=== PATIENT | male | born 1965 | race Caucasian/White ===

== ENCOUNTER → 2024-09-22 11:14 | Outpatient (REF) | payer OTHER, SELFPAY | LOC: HWRAD 11:14 | PROVIDERS: ATTENDING PHYSICIAN Nurse Practitioner | DX: M25.561 Pain in right knee (principal) | CPT/HCPCS: 73564 ==

== ENCOUNTER → 2024-11-09 07:03 | Outpatient (REF) | payer OTHER, SELFPAY | LOC: MRI 07:03 | PROVIDERS: ATTENDING PHYSICIAN Orthopaedic Surgery; FAMILY PHYSICIAN Nurse Practitioner | DX: M25.561 Pain in right knee (principal) | CPT/HCPCS: 73721 ==

== ENCOUNTER 2024-11-23 11:17 | Outpatient (RCR) | payer OTHER, SELFPAY | END 2024-11-23 23:59 | disposition home or self-care (01) | LOC: RPT 11:17 | PROVIDERS: ATTENDING PHYSICIAN Orthopaedic Surgery; FAMILY PHYSICIAN Nurse Practitioner | DX: M17.11 Unilateral primary osteoarthritis, right knee (principal); M84.461D Pathological fracture, right tibia, subsequent encounter for fracture with routine healing; S83.241D Other tear of medial meniscus, current injury, right knee, subsequent encounter; Z73.6 Limitation of activities due to disability | CPT/HCPCS: 97010; 97110; 97162 ==

== ENCOUNTER 2024-12-27 06:34 | Outpatient (RCR) | payer OTHER, SELFPAY | END 2024-12-27 23:59 | disposition home or self-care (01) | LOC: RPT 06:34 | PROVIDERS: ATTENDING PHYSICIAN Orthopaedic Surgery; FAMILY PHYSICIAN Nurse Practitioner | DX: M17.11 Unilateral primary osteoarthritis, right knee (principal); M84.461D Pathological fracture, right tibia, subsequent encounter for fracture with routine healing; S83.241D Other tear of medial meniscus, current injury, right knee, subsequent encounter; Z73.6 Limitation of activities due to disability | CPT/HCPCS: 97010; 97110; 97530 ==

== ENCOUNTER 2024-12-29 06:34 | Outpatient (RCR) | payer OTHER, SELFPAY | END 2024-12-29 10:43 | disposition home or self-care (01) | LOC: RPT 06:34 | PROVIDERS: ATTENDING PHYSICIAN Orthopaedic Surgery; FAMILY PHYSICIAN Nurse Practitioner | DX: M17.11 Unilateral primary osteoarthritis, right knee (principal); M84.461D Pathological fracture, right tibia, subsequent encounter for fracture with routine healing; S83.241D Other tear of medial meniscus, current injury, right knee, subsequent encounter; Z73.6 Limitation of activities due to disability | CPT/HCPCS: 97010; 97110 ==

== ENCOUNTER 2025-03-07 06:28 | Day surgery (SDC) | payer OTHER, SELFPAY | END 2025-03-07 10:01 | disposition home or self-care (01) | LOC: GI 06:28 | PROVIDERS: ATTENDING PHYSICIAN Internal Medicine | DX: Z12.11 Encounter for screening for malignant neoplasm of colon (principal); K64.9 Unspecified hemorrhoids; K57.30 Diverticulosis of large intestine without perforation or abscess without bleeding; K63.5 Polyp of colon; Z80.0 Family history of malignant neoplasm of digestive organs | CPT/HCPCS: 45380; 88305 ==